=== PATIENT | male | born 2000 | race African-American/Black ===

== ENCOUNTER 2025-06-01 03:14 | Emergency (ER) | payer MEDICAID ==
[~2025-06-01] VITALS: Ht 170.2 cm; Wt 95.0 kg
[2025-06-01 03:16] VITALS: O2SAT 100
[2025-06-01] MEDS ORDERED: AMOX1TAB16 MT (04:11)
[2025-06-01 04:25] VITALS: TEMP 36.8; O2SAT 100
[2025-06-01 04:29] VITALS: BP 139/95; PULSE 69; RESP 15
[2025-06-01] MEDS: KETOROLAC 15MG/ML VIAL IM ONE (04:29)
== END 2025-06-01 04:36 | disposition home or self-care (01) ==
LOC: ER 03:14
DX: K08.89 Other specified disorders of teeth and supporting structures (principal); F20.9 Schizophrenia, unspecified; Z79.899 Other long term (current) drug therapy
CPT/HCPCS: 99283; 96372; J1885